=== PATIENT | female | born 1980 | race African-American/Black ===

== ENCOUNTER 2022-09-24 23:12 | Inpatient (IN) | payer OTHER ==
[2022-09-24 23:38] LABS: HEMATOCRIT 25.2 % (32.4-45.2); HEMOGLOBIN 8.4 GM/dL (10.7-15.3); MCH 31.9 pg (25.7-33.7); MCHC 33.2 g/dl (32.0-36.0); MEAN CELL VOLUME 96.1 fl (80-96); PLATELET COUNT 59 10^3/uL (134-434); RBC 2.62 M/mm3 (3.60-5.2); RDW 21.2 % (11.6-15.6)
[2022-09-24 23:42] LABS: ADD RBC MORPHOLOGY YES
[2022-09-24] MEDS ORDERED: MIDAZOLAM IN 0.9 % SOD.CHLORID 1 MG/1 ML PLAST..BAG ONE (23:53)
[2022-09-24 23:54] LABS: INR 1.51 (0.83-1.09); PROTHROMBIN TIME (PATIENT) 17.4 SEC (9.7-13.0)
[2022-09-24 23:57] LABS: ACTIVATED PTT 28.9 SECONDS (25.2-36.5)
[2022-09-25 00:01] LABS: BLOOD UREA NITROGEN 7.2 mg/dL (7-18); CALCIUM 8.7 mg/dL (8.5-10.1)
[2022-09-25 00:04] LABS: CREATININE 1.5 mg/dL (0.55-1.3)
[2022-09-25] MEDS ORDERED: MINERAL OIL/PETROLATUM,WHITE 3.5 GM TUBE OU PRN (00:04)
[2022-09-25 00:06] LABS: BILIRUBIN,TOTAL 2.4 mg/dL (0.2-1); TOT PROT 8.1 g/dl (6.4-8.2)
[2022-09-25] MEDS ORDERED: DEXTROSE 50%-WATER - 25 GM/50 ML VIAL IVPUSH ONE (00:06)
[2022-09-25] MEDS ORDERED: DEXTROSE 50%-WATER 25 GM/50 ML DISP.SYRIN ONE (00:06)
[2022-09-25] MEDS ORDERED: CALCIUM GLUCONATE 10% - 1,000 MG/10 ML VIAL ONE (00:33)
[2022-09-25] MEDS ORDERED: CALCIUM GLUCONATE 10% - 1,000 MG/10 ML VIAL IVPUSH ONE ×3 (00:33→10:18)
[2022-09-25] MEDS ORDERED: EPINEPHrine 1:10,000 (P-F SYR) 1 MG/10 ML DISP.SYRIN ONE (00:40)
[2022-09-25 00:42] LABS: WHITE BLOOD COUNT 3.5 K/mm3 (4.0-10.0)
[2022-09-25 00:44] LABS: ANISOCYTOSIS 2+; MACROCYTOSIS 1+; PLATELET ESTIMATE DECREASED; TARGET CELLS 2+; TEAR DROP CELLS 2+
[2022-09-25] MEDS ORDERED: PHYTONADIONE 10 MG/1 ML AMP IVPB ONE (01:48)
[2022-09-25 01:49] LABS: ARTERIAL BLD GAS O2 SATURATION 99.5 % (95-98); ARTERIAL BLOOD GAS BASE EXCESS -19.1 mmol/L (-2-2); ARTERIAL BLOOD GAS PO2 330.7 mmHg (80-100)
[2022-09-25] MEDS ORDERED: FENTANYL NS IVPB 500 MCG/100 ML BAG IVPB ONE ×5 (01:55→23:36)
[2022-09-25 01:58] LABS: ALLENS TEST POSITIVE; VENT MODE A/C; VENT RATE 16
[2022-09-25 03:27] LABS: HEMATOCRIT 20.6 % (32.4-45.2); MCH 30.4 pg (25.7-33.7); MCHC 32.4 g/dl (32.0-36.0); MEAN CELL VOLUME 93.7 fl (80-96); MEAN PLT VOLUME 6.6 fl (7.5-11.1); PLATELET COUNT 62 10^3/uL (134-434); RDW 17.3 % (11.6-15.6); WHITE BLOOD COUNT 2.5 K/mm3 (4.0-10.0)
[2022-09-25 03:46] LABS: HEMOGLOBIN 6.7 GM/dL (10.7-15.3)
[2022-09-25 03:49] LABS: ARTERIAL BLD GAS O2 SATURATION 98.3 % (95-98); ARTERIAL BLOOD GAS BASE EXCESS -23.5 mmol/L (-2-2); ARTERIAL BLOOD GAS PO2 197.8 mmHg (80-100)
[2022-09-25] MEDS: FENTANYL IVPB 500 MCG/100 ML BAG IVPB SCH ×4 (03:50→18:16)
[2022-09-25 04:04] LABS: ARTERIAL BLOOD GAS pH 6.871 (7.350-7.450)
[2022-09-25] MEDS ORDERED: SODIUM BICARBONATE 8.4% 50 MEQ/50 ML DISP.SYRIN IVPUSH ONE ×2 (04:05)
[2022-09-25] MEDS: DEXTROSE 5%-WATER - 1,000 ML with SODIUM BICARBONATE 8.4% - 150 MEQ IV SCH (04:21)
[2022-09-25] MEDS: ROCURONIUM BROMIDE 500 MG/300 ML BAG IVPB SCH (04:22)
[2022-09-25] MEDS: MIDAZOLAM IN 0.9 % SOD.CHLORID 100 MG/100 ML PLAST..BAG IVPB SCH ×2 (04:22→10:57)
[2022-09-25 06:29] LABS: ARTERIAL BLD GAS O2 SATURATION 97.9 % (95-98); ARTERIAL BLOOD GAS BASE EXCESS -17.3 mmol/L (-2-2); ARTERIAL BLOOD GAS PO2 141.3 mmHg (80-100)
[2022-09-25 06:32] LABS: INR 1.72 (0.83-1.09); PROTHROMBIN TIME (PATIENT) 19.9 SEC (9.7-13.0)
[2022-09-25 06:35] LABS: ARTERIAL BLOOD GAS pH 7.104 (7.350-7.450)
[2022-09-25 06:36] LABS: BASO % 0.5 % (0-2.0); EOS % 0.4 % (0-4.5); HEMATOCRIT 29.6 % (32.4-45.2); HEMOGLOBIN 9.7 GM/dL (10.7-15.3); LYMPH % 14.9 % (8-40); MCHC 32.6 g/dl (32.0-36.0); MEAN CELL VOLUME 92.1 fl (80-96); MEAN PLT VOLUME 7.2 fl (7.5-11.1); MONO % 2.7 % (3.8-10.2); NEUT % 81.5 % (42.8-82.8); PLATELET COUNT 94 10^3/uL (134-434); RBC 3.22 M/mm3 (3.60-5.2); RDW 15.5 % (11.6-15.6); WHITE BLOOD COUNT 3.5 K/mm3 (4.0-10.0)
[2022-09-25 06:58] LABS: LACTIC ACID 18.5 mmol/L (0.4-2.0)
[2022-09-25 07:09] LABS: CHLORIDE 108 mmol/L (98-107); SODIUM 149 mmol/L (136-145)
[2022-09-25 07:12] LABS: ALBUMIN 1.8 g/dl (3.4-5.0); ANION GAP 26 MMOL/L (8-16); BLOOD UREA NITROGEN 6.7 mg/dL (7-18); CO2 15 mmol/L (21-32); GLUCOSE,RANDOM 175 mg/dL (74-106); MAGNESIUM 1.3 mg/dL (1.8-2.4)
[2022-09-25] MEDS ORDERED: CALCIUM CHLORIDE 10% 1 GM/10 ML *VIAL IVPUSH ONE (07:13)
[2022-09-25 07:15] LABS: CREATININE 0.9 mg/dL (0.55-1.3); PHOSPHOROUS 4.3 mg/dL (2.5-4.9); SGOT/AST 246 U/L (15-37); SGPT/ALT 55 U/L (13-61)
[2022-09-25 07:17] LABS: BILIRUBIN,TOTAL 1.2 mg/dL (0.2-1)
[2022-09-25 07:21] LABS: ALK PHOS 59 U/L (45-117); CALCIUM 6.4 mg/dL (8.5-10.1); TOT PROT 3.8 g/dl (6.4-8.2)
[2022-09-25] MEDS ORDERED: NOREPINEPHRINE BITARTRATE 4 MG/4 ML ML IV ONE (08:02)
[2022-09-25] MEDS ORDERED: NOREPINEPHRINE BITARTRATE/D5W 8 MG/250 ML BAG IVPB SCH (08:15)
[2022-09-25 08:50] LABS: BASO % 0.3 % (0-2.0); EOS % 0.3 % (0-4.5); HEMATOCRIT 27.4 % (32.4-45.2); HEMOGLOBIN 8.8 GM/dL (10.7-15.3); LYMPH % 19.2 % (8-40); MCH 30.6 pg (25.7-33.7); MCHC 32.1 g/dl (32.0-36.0); MEAN CELL VOLUME 95.1 fl (80-96); MEAN PLT VOLUME 7.1 fl (7.5-11.1); MONO % 3.7 % (3.8-10.2); NEUT % 76.5 % (42.8-82.8); PLATELET COUNT 47 10^3/uL (134-434); RBC 2.88 M/mm3 (3.60-5.2); WHITE BLOOD COUNT 2.8 K/mm3 (4.0-10.0)
[2022-09-25 08:57] LABS: ACTIVATED PTT 49.1 SECONDS (25.2-36.5); INR 1.4 (0.83-1.09); PROTHROMBIN TIME (PATIENT) 16.2 SEC (9.7-13.0)
[2022-09-25 09:11] LABS: CHLORIDE 107 mmol/L (98-107); SODIUM 150 mmol/L (136-145)
[2022-09-25 09:13] LABS: ALBUMIN 1.8 g/dl (3.4-5.0); ANION GAP 28 MMOL/L (8-16); BLOOD UREA NITROGEN 7.1 mg/dL (7-18); CO2 15 mmol/L (21-32); GLUCOSE,RANDOM 240 mg/dL (74-106); MAGNESIUM 1.5 mg/dL (1.8-2.4)
[2022-09-25] MEDS ORDERED: methylPREDNISolone NA SUCC 125 MG/2 ML VIAL IVPUSH ONE (09:15)
[2022-09-25 09:16] LABS: CREATININE 0.9 mg/dL (0.55-1.3); PHOSPHOROUS 5.5 mg/dL (2.5-4.9); SGOT/AST 167 U/L (15-37); SGPT/ALT 43 U/L (13-61)
[2022-09-25 09:17] LABS: BILIRUBIN,TOTAL 0.7 mg/dL (0.2-1); TOT PROT 3.5 g/dl (6.4-8.2)
[2022-09-25 09:19] LABS: ALK PHOS 41 U/L (45-117)
[2022-09-25 09:29] LABS: CALCIUM 6.9 mg/dL (8.5-10.1)
[2022-09-25] MEDS: NOREPINEPHRINE 0.9 % NACL 8 MG/250 ML BAG IVPB SCH (09:30)
[2022-09-25] MEDS ORDERED: CALCIUM GLUCONATE 10% - 1,000 MG/10 ML VIAL IVPUSH SCH (09:30)
[2022-09-25] MEDS: VASOPRESSIN 40 UNITS/100 ML BAG IV SCH ×2 (09:31→20:55)
[2022-09-25 09:52] LABS: LACTIC ACID 20.3 mmol/L (0.4-2.0)
[2022-09-25] MEDS ORDERED: MIDAZOLAM HCL 2 MG/2 ML SINGLE DOSE VIAL IVPUSH ONE (09:56)
[2022-09-25] MEDS ORDERED: levETIRAcetam 500 MG/5 ML INJECTION VIAL IVPB ONE ×4 (09:56→12:25)
[2022-09-25] MEDS ORDERED: levETIRAcetam 500 MG/5 ML INJECTION VIAL IVPB SCH (10:00)
[2022-09-25] MEDS ORDERED: VANCOMYCIN 1 GM/200 ML PREMIX BAG IVPB ONE (10:00)
[2022-09-25] MEDS ORDERED: LORazepam 2 MG/ML SDV VIAL IVPUSH ONE (10:55)
[2022-09-25] MEDS ORDERED: LACTATED RINGERS SOLUTION 1,000 ML/1,000 ML INFUS.BAG IV SCH (11:15)
[2022-09-25] MEDS: PIPERACILLIN/TAZOB 3.375 GM 3.375 GM in DEXTROSE 5%-WATER - 50 ML IVPB SCH ×2 (12:12→20:19)
[2022-09-25] MEDS: DEXMEDETOMIDINE PREMIX 400 MCG/100 ML BAG IVPB SCH (12:20)
[2022-09-25] MEDS: MUPIROCIN 2% TOPICAL OINTMENT FOR DECOLONIZATION NS SCH ×2 (12:31→22:08)
[2022-09-25 13:06] LABS: HEMATOCRIT 31.7 % (32.4-45.2); HEMOGLOBIN 10.6 GM/dL (10.7-15.3); MCH 30.8 pg (25.7-33.7); MCHC 33.3 g/dl (32.0-36.0); MEAN CELL VOLUME 92.5 fl (80-96); MEAN PLT VOLUME 7.3 fl (7.5-11.1); PLATELET COUNT 39 10^3/uL (134-434); RBC 3.43 M/mm3 (3.60-5.2); RDW 14.5 % (11.6-15.6); WHITE BLOOD COUNT 3.1 K/mm3 (4.0-10.0)
[2022-09-25 13:16] LABS: BLOOD UREA NITROGEN 6.9 mg/dL (7-18)
[2022-09-25 13:20] LABS: BILIRUBIN,TOTAL 1.2 mg/dL (0.2-1)
[2022-09-25] MEDS ORDERED: MAGNESIUM SULFATE IN WATER 2 GM/50 ML IVPB IVPB ONE (15:00)
[2022-09-25 16:20] LABS: HEMATOCRIT 29.7 % (32.4-45.2); HEMOGLOBIN 9.9 GM/dL (10.7-15.3); INR 1.32 (0.83-1.09); MCH 30.1 pg (25.7-33.7); MCHC 33.3 g/dl (32.0-36.0); MEAN CELL VOLUME 90.3 fl (80-96); MEAN PLT VOLUME 6.9 fl (7.5-11.1); PLATELET COUNT 256 10^3/uL (134-434); PROTHROMBIN TIME (PATIENT) 15.2 SEC (9.7-13.0); RBC 3.29 M/mm3 (3.60-5.2); RDW 14.6 % (11.6-15.6); WHITE BLOOD COUNT 3.7 K/mm3 (4.0-10.0)
[2022-09-25 16:32] LABS: BLOOD UREA NITROGEN 6.8 mg/dL (7-18); CALCIUM 7.3 mg/dL (8.5-10.1)
[2022-09-25 16:35] LABS: CREATININE 1.2 mg/dL (0.55-1.3)
[2022-09-25 16:37] LABS: TOT PROT 4.9 g/dl (6.4-8.2)
[2022-09-25 16:39] LABS: ALBUMIN 2.4 g/dl (3.4-5.0)
[2022-09-25 17:01] LABS: LACTIC ACID 20.9 mmol/L (0.4-2.0)
[2022-09-25 17:34] LABS: MAGNESIUM 1.3 mg/dL (1.8-2.4)
[2022-09-25 17:38] LABS: PHOSPHOROUS 4.3 mg/dL (2.5-4.9)
[2022-09-25] MEDS: POTASSIUM CHLORIDE 20 MEQ PREMIX IVPB 100 ML IVPB SCH ×3 (18:11→22:09)
[2022-09-25 20:00] LABS: HEMATOCRIT 29.9 % (32.4-45.2); HEMOGLOBIN 10.1 GM/dL (10.7-15.3); MCH 30.3 pg (25.7-33.7); MCHC 33.9 g/dl (32.0-36.0); MEAN CELL VOLUME 89.3 fl (80-96); MEAN PLT VOLUME 6.7 fl (7.5-11.1); PLATELET COUNT 216 10^3/uL (134-434); RBC 3.35 M/mm3 (3.60-5.2); RDW 14.8 % (11.6-15.6); WHITE BLOOD COUNT 3.3 K/mm3 (4.0-10.0)
[2022-09-25 20:10] LABS: CHLORIDE 106 mmol/L (98-107); SODIUM 148 mmol/L (136-145)
[2022-09-25 20:12] LABS: CALCIUM 7.1 mg/dL (8.5-10.1)
[2022-09-25 20:13] LABS: ALBUMIN 2.4 g/dl (3.4-5.0); BLOOD UREA NITROGEN 7.7 mg/dL (7-18); CO2 16 mmol/L (21-32); GLUCOSE,RANDOM 194 mg/dL (74-106)
[2022-09-25 20:15] LABS: INR 1.32 (0.83-1.09); PROTHROMBIN TIME (PATIENT) 15.2 SEC (9.7-13.0); SGPT/ALT 202 U/L (13-61)
[2022-09-25 20:16] LABS: BILIRUBIN,TOTAL 2.6 mg/dL (0.2-1); CREATININE 1.3 mg/dL (0.55-1.3); TOT PROT 5.1 g/dl (6.4-8.2)
[2022-09-25 20:18] LABS: ACTIVATED PTT 36.7 SECONDS (25.2-36.5); ALK PHOS 68 U/L (45-117)
[2022-09-25] MEDS ORDERED: CALCIUM GLUCONATE 10% - 1,000 MG/10 ML VIAL IVPB ONE ×2 (20:37→22:08)
[2022-09-25 20:47] LABS: ANION GAP 27 MMOL/L (8-16); SGOT/AST 1067 U/L (15-37)
[2022-09-25 21:21] LABS: CHLORIDE 104 mmol/L (98-107); SODIUM 147 mmol/L (136-145)
[2022-09-25 21:23] LABS: ANION GAP 26 MMOL/L (8-16); BLOOD UREA NITROGEN 7.4 mg/dL (7-18); CO2 17 mmol/L (21-32); GLUCOSE,RANDOM 176 mg/dL (74-106)
[2022-09-25 21:24] LABS: LACTIC ACID 21.4 mmol/L (0.4-2.0)
[2022-09-25 21:24] LABS: ALBUMIN 2.3 g/dl (3.4-5.0)
[2022-09-25 21:26] LABS: CREATININE 1.3 mg/dL (0.55-1.3); SGPT/ALT 216 U/L (13-61)
[2022-09-25 21:28] LABS: ALK PHOS 63 U/L (45-117); BILIRUBIN,TOTAL 2.7 mg/dL (0.2-1); TOT PROT 4.9 g/dl (6.4-8.2)
[2022-09-25 21:36] LABS: CALCIUM 6.8 mg/dL (8.5-10.1); SGOT/AST 1215 U/L (15-37)
[2022-09-25] MEDS: levETIRAcetam 500 MG/5 ML INJECTION VIAL IVPB SCH (22:08)
[2022-09-25] MEDS: CHLORHEXIDINE GLUCONATE 4% CLEANSER FOR DECOLONIZATION TP SCH (22:08)
[2022-09-25 22:32] LABS: HEMATOCRIT 29.5 % (32.4-45.2); MCH 30.2 pg (25.7-33.7); MEAN CELL VOLUME 88.8 fl (80-96); MEAN PLT VOLUME 6.5 fl (7.5-11.1); PLATELET COUNT 159 10^3/uL (134-434); RBC 3.33 M/mm3 (3.60-5.2); RDW 15.1 % (11.6-15.6); WHITE BLOOD COUNT 2.6 K/mm3 (4.0-10.0)
[2022-09-25 22:58] LABS: MAGNESIUM 1.9 mg/dL (1.8-2.4)
[2022-09-25 23:02] LABS: PHOSPHOROUS 4.9 mg/dL (2.5-4.9)
[2022-09-26 00:23] LABS: ARTERIAL BLD GAS O2 SATURATION 96.4 % (95-98); ARTERIAL BLOOD GAS BASE EXCESS -18.7 mmol/L (-2-2); ARTERIAL BLOOD GAS PO2 108.9 mmHg (80-100)
[2022-09-26 00:28] LABS: MAGNESIUM 1.8 mg/dL (1.8-2.4)
[2022-09-26 00:28] LABS: ARTERIAL BLOOD GAS pH 7.124 (7.350-7.450)
[2022-09-26 00:32] LABS: PHOSPHOROUS 5.6 mg/dL (2.5-4.9)
[2022-09-26] MEDS ORDERED: MAGNESIUM SULF 50% (8.12 MEQ/2 ML-1 GM VIAL) IVPB ONE (00:35)
[2022-09-26] MEDS: SODIUM BICARBONATE 8.4% 50 MEQ/50 ML DISP.SYRIN IVPUSH SCH ×3 (00:55→04:36)
[2022-09-26 01:03] LABS: CALCIUM 7.4 mg/dL (8.5-10.1)
[2022-09-26] MEDS: MIDAZOLAM IN 0.9 % SOD.CHLORID 100 MG/100 ML PLAST..BAG IVPB SCH (01:03)
[2022-09-26 01:04] LABS: BLOOD UREA NITROGEN 7.4 mg/dL (7-18)
[2022-09-26] MEDS: PIPERACILLIN/TAZOB 3.375 GM 3.375 GM in DEXTROSE 5%-WATER - 50 ML IVPB SCH (01:04)
[2022-09-26] MEDS: ROCURONIUM BROMIDE 500 MG/300 ML BAG IVPB SCH (01:04)
[2022-09-26 01:07] LABS: CREATININE 1.4 mg/dL (0.55-1.3)
[2022-09-26 01:10] LABS: BILIRUBIN,TOTAL 3.3 mg/dL (0.2-1); TOT PROT 4.8 g/dl (6.4-8.2)
[2022-09-26 01:23] LABS: ALBUMIN 2.3 g/dl (3.4-5.0)
[2022-09-26] MEDS ORDERED: CALCIUM GLUCONATE 10% - 1,000 MG/10 ML VIAL IVPB ONE (04:26)
[2022-09-26] MEDS ORDERED: FENTANYL NS IVPB 500 MCG/100 ML BAG IVPB ONE ×3 (06:41→21:42)
[2022-09-26 06:55] LABS: INR 1.79 (0.83-1.09); PROTHROMBIN TIME (PATIENT) 20.7 SEC (9.7-13.0)
[2022-09-26 06:58] LABS: ACTIVATED PTT 34.4 SECONDS (25.2-36.5)
[2022-09-26 07:07] LABS: CHLORIDE 104 mmol/L (98-107); SODIUM 153 mmol/L (136-145)
[2022-09-26 07:09] LABS: CALCIUM 7.2 mg/dL (8.5-10.1)
[2022-09-26 07:10] LABS: ALBUMIN 1.9 g/dl (3.4-5.0); ANION GAP 33 MMOL/L (8-16); BLOOD UREA NITROGEN 9.3 mg/dL (7-18); CO2 16 mmol/L (21-32); HEMATOCRIT 27.6 % (32.4-45.2); HEMOGLOBIN 9.6 GM/dL (10.7-15.3); MAGNESIUM 1.9 mg/dL (1.8-2.4); MCH 30.4 pg (25.7-33.7); MCHC 34.8 g/dl (32.0-36.0); MEAN CELL VOLUME 87.4 fl (80-96); MEAN PLT VOLUME 7.1 fl (7.5-11.1); PLATELET COUNT 71 10^3/uL (134-434); RBC 3.16 M/mm3 (3.60-5.2); RDW 14.9 % (11.6-15.6)
[2022-09-26 07:12] LABS: SGPT/ALT 416 U/L (13-61)
[2022-09-26 07:13] LABS: CREATININE 1.8 mg/dL (0.55-1.3); PHOSPHOROUS 6.1 mg/dL (2.5-4.9)
[2022-09-26 07:14] LABS: TOT PROT 4.1 g/dl (6.4-8.2)
[2022-09-26 07:15] LABS: ALK PHOS 63 U/L (45-117)
[2022-09-26 07:18] LABS: ARTERIAL BLD GAS O2 SATURATION 96.3 % (95-98); ARTERIAL BLOOD GAS PO2 101.3 mmHg (80-100)
[2022-09-26 07:19] LABS: ARTERIAL BLOOD GAS pH 7.186 (7.350-7.450)
[2022-09-26 07:27] LABS: LACTIC ACID 29.2 mmol/L (0.4-2.0)
[2022-09-26 07:32] LABS: GLUCOSE,RANDOM 47 mg/dL (74-106); SGOT/AST 3171 U/L (15-37)
[2022-09-26] MEDS ORDERED: DEXTROSE 50%-WATER - 25 GM/50 ML VIAL IVPUSH ONE ×2 (07:45→12:25)
[2022-09-26] MEDS: FENTANYL IVPB 500 MCG/100 ML BAG IVPB SCH (07:52)
[2022-09-26] MEDS: NOREPINEPHRINE 0.9 % NACL 8 MG/250 ML BAG IVPB SCH ×3 (07:53→13:44)
[2022-09-26] MEDS: DEXMEDETOMIDINE PREMIX 400 MCG/100 ML BAG IVPB SCH ×2 (07:53→12:38)
[2022-09-26] MEDS ORDERED: PHENYLEPHRINE HCL 10 MG/1 ML SINGLE DOSE VIAL IVPB SCH ×3 (08:43→10:00)
[2022-09-26 08:47] LABS: ANISOCYTOSIS 0; MACROCYTOSIS 0
[2022-09-26] MEDS: MUPIROCIN 2% TOPICAL OINTMENT FOR DECOLONIZATION NS SCH ×2 (09:01→22:16)
[2022-09-26] MEDS: levETIRAcetam 500 MG/5 ML INJECTION VIAL IVPB SCH ×2 (09:01→22:17)
[2022-09-26] MEDS: VASOPRESSIN 40 UNITS/100 ML BAG IV SCH ×2 (09:08→12:38)
[2022-09-26] MEDS: SODIUM BICARBONATE 8.4% - 150 MEQ in DEXTROSE 5%-WATER - 1,000 ML IV SCH ×2 (09:18→19:38)
[2022-09-26 09:33] LABS: CORRECTED WBC 3.03 K/mm3; WHITE BLOOD COUNT 6.7 K/mm3 (4.0-10.0)
[2022-09-26] MEDS: PHENYLEPHRINE NS PREMIX 50,000 MCG/500 ML BAG CVP SCH (09:34)
[2022-09-26 10:56] LABS: HEMATOCRIT 27.4 % (32.4-45.2); HEMOGLOBIN 9.3 GM/dL (10.7-15.3); MCH 30.1 pg (25.7-33.7); MCHC 33.8 g/dl (32.0-36.0); MEAN PLT VOLUME 7.4 fl (7.5-11.1); PLATELET COUNT 55 10^3/uL (134-434); RBC 3.08 M/mm3 (3.60-5.2); RDW 15.2 % (11.6-15.6)
[2022-09-26 11:01] LABS: INR 2.06 (0.83-1.09); PROTHROMBIN TIME (PATIENT) 23.9 SEC (9.7-13.0)
[2022-09-26 11:04] LABS: ACTIVATED PTT 37.4 SECONDS (25.2-36.5)
[2022-09-26 11:06] LABS: CHLORIDE 102 mmol/L (98-107); LACTIC ACID 29.4 mmol/L (0.4-2.0); SODIUM 150 mmol/L (136-145)
[2022-09-26 11:09] LABS: ALBUMIN 1.8 g/dl (3.4-5.0); ANION GAP 33 MMOL/L (8-16); BLOOD UREA NITROGEN 8.3 mg/dL (7-18); CO2 15 mmol/L (21-32); GLUCOSE,RANDOM 113 mg/dL (74-106)
[2022-09-26 11:12] LABS: SGPT/ALT 582 U/L (13-61)
[2022-09-26 11:13] LABS: TOT PROT 3.8 g/dl (6.4-8.2)
[2022-09-26 11:15] LABS: ALK PHOS 62 U/L (45-117)
[2022-09-26 11:23] LABS: ANISOCYTOSIS 0; CORRECTED WBC 5.49 K/mm3; HELMET CELLS 0; HOWELL-JOLLY BODIES 0; MACROCYTOSIS 0; OVALOCYTE 0; ROULEAU 0; SICKELED CELLS 0; TARGET CELLS 0; TEAR DROP CELLS 0; TOXIC GRANULATION 0
[2022-09-26 11:43] LABS: CALCIUM 6.9 mg/dL (8.5-10.1); SGOT/AST 4519 U/L (15-37)
[2022-09-26 12:26] LABS: ARTERIAL BLD GAS O2 SATURATION 90.4 % (95-98); ARTERIAL BLOOD GAS BASE EXCESS -18.7 mmol/L (-2-2); ARTERIAL BLOOD GAS PO2 75.8 mmHg (80-100)
[2022-09-26] MEDS ORDERED: DEXTROSE 50%-WATER 25 GM/50 ML DISP.SYRIN ONE (12:28)
[2022-09-26 12:30] LABS: ALLENS TEST POSITIVE
[2022-09-26 12:31] LABS: VENT MODE AC; VENT RATE 30
[2022-09-26 12:33] LABS: ARTERIAL BLOOD GAS pH 7.114 (7.350-7.450)
[2022-09-26] MEDS: DEXTROSE 5%-WATER - 1,000 ML with SODIUM BICARBONATE 8.4% - 150 MEQ IV SCH (12:43)
[2022-09-26] MEDS ORDERED: SODIUM BICARBONATE 8.4% 50 MEQ/50 ML DISP.SYRIN IVPUSH ONE ×4 (14:34→17:21)
[2022-09-26 15:36] LABS: HEMATOCRIT 25.4 % (32.4-45.2); HEMOGLOBIN 8.9 GM/dL (10.7-15.3); MCHC 34.8 g/dl (32.0-36.0); MEAN CELL VOLUME 86.2 fl (80-96); MEAN PLT VOLUME 7.4 fl (7.5-11.1); RBC 2.95 M/mm3 (3.60-5.2); RDW 15.3 % (11.6-15.6)
[2022-09-26 15:41] LABS: ACTIVATED PTT 41.4 SECONDS (25.2-36.5); INR 2.47 (0.83-1.09); PROTHROMBIN TIME (PATIENT) 28.7 SEC (9.7-13.0)
[2022-09-26 15:54] LABS: CHLORIDE 102 mmol/L (98-107); SODIUM 157 mmol/L (136-145)
[2022-09-26 15:56] LABS: ALBUMIN 1.6 g/dl (3.4-5.0); ANION GAP 34 MMOL/L (8-16); BLOOD UREA NITROGEN 10.2 mg/dL (7-18); CO2 20 mmol/L (21-32); GLUCOSE,RANDOM 107 mg/dL (74-106)
[2022-09-26 16:00] LABS: CREATININE 2.1 mg/dL (0.55-1.3); SGPT/ALT 826 U/L (13-61)
[2022-09-26 16:02] LABS: BILIRUBIN,TOTAL 4.5 mg/dL (0.2-1); TOT PROT 3.6 g/dl (6.4-8.2)
[2022-09-26 16:03] LABS: ALK PHOS 71 U/L (45-117)
[2022-09-26 16:06] LABS: PLATELET COUNT 35 10^3/uL (134-434)
[2022-09-26 16:15] LABS: ANISOCYTOSIS 2+; CORRECTED WBC 12.68 K/mm3; MACROCYTOSIS 0; TARGET CELLS 1+; TEAR DROP CELLS 1+
[2022-09-26 16:22] LABS: CALCIUM 6.5 mg/dL (8.5-10.1); SGOT/AST 7202 U/L (15-37)
[2022-09-26] MEDS ORDERED: SODIUM BICARBONATE 8.4% - 100 MEQ in DEXTROSE 5%-WATER - 1,000 ML IV SCH ×2 (16:55→17:00)
[2022-09-26 17:12] LABS: ARTERIAL BLD GAS O2 SATURATION 90.2 % (95-98); ARTERIAL BLOOD GAS BASE EXCESS -15.8 mmol/L (-2-2)
[2022-09-26 17:14] LABS: VENT MODE V/AC; VENT RATE 30
[2022-09-26 17:16] LABS: ARTERIAL BLOOD GAS pH 7.162 (7.350-7.450)
[2022-09-26] MEDS ORDERED: SODIUM BICARBONATE 8.4% 50 MEQ/50 ML VIAL ONE (17:54)
[2022-09-26 19:03] LABS: BASO % 0.1 % (0-2.0); EOS % 11.3 % (0-4.5); HEMATOCRIT 27.8 % (32.4-45.2); HEMOGLOBIN 9.4 GM/dL (10.7-15.3); LYMPH % 12.9 % (8-40); MCH 29.7 pg (25.7-33.7); MCHC 33.8 g/dl (32.0-36.0); MEAN PLT VOLUME 7.3 fl (7.5-11.1); MONO % 7.2 % (3.8-10.2); NEUT % 68.5 % (42.8-82.8); RBC 3.16 M/mm3 (3.60-5.2); RDW 15.5 % (11.6-15.6); WHITE BLOOD COUNT 19.8 K/mm3 (4.0-10.0)
[2022-09-26 19:04] LABS: PLATELET COUNT 29 10^3/uL (134-434)
[2022-09-26 19:11] LABS: INR 2.59 (0.83-1.09); PROTHROMBIN TIME (PATIENT) 30.1 SEC (9.7-13.0)
[2022-09-26 19:14] LABS: ACTIVATED PTT 45.2 SECONDS (25.2-36.5)
[2022-09-26 19:50] LABS: INR 2.77 (0.83-1.09); PROTHROMBIN TIME (PATIENT) 32.2 SEC (9.7-13.0)
[2022-09-26 19:52] LABS: ACTIVATED PTT 42.1 SECONDS (25.2-36.5)
[2022-09-26 19:54] LABS: ARTERIAL BLD GAS O2 SATURATION 94.9 % (95-98); ARTERIAL BLOOD GAS BASE EXCESS -13.7 mmol/L (-2-2); ARTERIAL BLOOD GAS PO2 87.5 mmHg (80-100); ARTERIAL BLOOD GAS pH 7.212 (7.350-7.450)
[2022-09-26 20:37] LABS: LACTIC ACID 34.1 mmol/L (0.4-2.0)
[2022-09-26 20:46] LABS: ANISOCYTOSIS 2+; CORRECTED WBC 16.78 K/mm3; MACROCYTOSIS 0; OVALOCYTE 1+; TEAR DROP CELLS 1+; TOXIC GRANULATION 1+
[2022-09-26] MEDS: CHLORHEXIDINE GLUCONATE 4% CLEANSER FOR DECOLONIZATION TP SCH (22:17)
[2022-09-26 22:32] LABS: ARTERIAL BLD GAS O2 SATURATION 94.7 % (95-98); ARTERIAL BLOOD GAS BASE EXCESS -16.9 mmol/L (-2-2); ARTERIAL BLOOD GAS PO2 93.2 mmHg (80-100); HEMATOCRIT 25.1 % (32.4-45.2); HEMOGLOBIN 8.6 GM/dL (10.7-15.3); MCH 30.9 pg (25.7-33.7); MCHC 34.3 g/dl (32.0-36.0); MEAN CELL VOLUME 90.1 fl (80-96); MEAN PLT VOLUME 8.4 fl (7.5-11.1); PLATELET COUNT 80 10^3/uL (134-434); RBC 2.78 M/mm3 (3.60-5.2); RDW 15.9 % (11.6-15.6)
[2022-09-26 22:36] LABS: ARTERIAL BLOOD GAS pH 7.134 (7.350-7.450)
[2022-09-26 23:34] LABS: LACTIC ACID 33.8 mmol/L (0.4-2.0)
[2022-09-27] MEDS ORDERED: SODIUM BICARBONATE 8.4% 50 MEQ/50 ML VIAL ONE (00:48)
[2022-09-27] MEDS: ROCURONIUM BROMIDE 500 MG/300 ML BAG IVPB SCH (01:04)
[2022-09-27] MEDS: SODIUM BICARBONATE 8.4% - 150 MEQ in DEXTROSE 5%-WATER - 1,000 ML IV SCH ×3 (01:05→21:45)
[2022-09-27] MEDS: MIDAZOLAM IN 0.9 % SOD.CHLORID 100 MG/100 ML PLAST..BAG IVPB SCH ×2 (01:37→07:00)
[2022-09-27 02:17] LABS: ARTERIAL BLD GAS O2 SATURATION 91.7 % (95-98); ARTERIAL BLOOD GAS PO2 80.2 mmHg (80-100)
[2022-09-27 02:19] LABS: HEMOGLOBIN 8.4 GM/dL (10.7-15.3); MCHC 33.7 g/dl (32.0-36.0); MEAN CELL VOLUME 88.7 fl (80-96); MEAN PLT VOLUME 8.8 fl (7.5-11.1); RBC 2.81 M/mm3 (3.60-5.2)
[2022-09-27 02:32] LABS: ARTERIAL BLOOD GAS pH 7.113 (7.350-7.450)
[2022-09-27 02:37] LABS: WHITE BLOOD COUNT 24.1 K/mm3 (4.0-10.0)
[2022-09-27 02:38] LABS: PLATELET COUNT 24 10^3/uL (134-434)
[2022-09-27 02:39] LABS: INR 2.63 (0.83-1.09); PROTHROMBIN TIME (PATIENT) 30.6 SEC (9.7-13.0)
[2022-09-27] MEDS ORDERED: CALCIUM GLUC IN NACL, ISO-OSM 1 GM/50 ML BAG IVPB ONE ×2 (02:45→20:40)
[2022-09-27] MEDS: SODIUM BICARBONATE 8.4% 50 MEQ/50 ML DISP.SYRIN IVPUSH SCH ×6 (03:04→14:30)
[2022-09-27 03:05] LABS: LACTIC ACID 38.3 mmol/L (0.4-2.0)
[2022-09-27] MEDS: FENTANYL IVPB 500 MCG/100 ML BAG IVPB SCH (03:28)
[2022-09-27] MEDS ORDERED: fentaNYL CITRATE 250 MCG/5 ML VIAL ONE (06:13)
[2022-09-27 06:29] LABS: ARTERIAL BLD GAS O2 SATURATION 95.5 % (95-98); ARTERIAL BLOOD GAS BASE EXCESS -16.4 mmol/L (-2-2); ARTERIAL BLOOD GAS PO2 96.7 mmHg (80-100); HEMATOCRIT 23.9 % (32.4-45.2); HEMOGLOBIN 8.1 GM/dL (10.7-15.3); MEAN CELL VOLUME 88.3 fl (80-96); MEAN PLT VOLUME 8.2 fl (7.5-11.1); RDW 15.9 % (11.6-15.6)
[2022-09-27 06:32] LABS: ARTERIAL BLOOD GAS pH 7.154 (7.350-7.450); PLATELET COUNT 15 10^3/uL (134-434); WHITE BLOOD COUNT 24.1 K/mm3 (4.0-10.0)
[2022-09-27 06:37] LABS: INR 2.94 (0.83-1.09); PROTHROMBIN TIME (PATIENT) 34.2 SEC (9.7-13.0)
[2022-09-27 06:40] LABS: ACTIVATED PTT 45.1 SECONDS (25.2-36.5)
[2022-09-27 06:49] LABS: CHLORIDE 99 mmol/L (98-107); SODIUM 157 mmol/L (136-145)
[2022-09-27] MEDS: DEXMEDETOMIDINE PREMIX 400 MCG/100 ML BAG IVPB SCH ×2 (07:00→09:58)
[2022-09-27 07:10] LABS: LACTIC ACID 39.7 mmol/L (0.4-2.0)
[2022-09-27 07:58] LABS: ALBUMIN 1.6 g/dl (3.4-5.0); ALK PHOS 103 U/L (45-117); ANION GAP 42 MMOL/L (8-16); BILIRUBIN,DIRECT 3.2 mg/dL (0.0-0.2); BILIRUBIN,TOTAL 4.9 mg/dL (0.2-1); BLOOD UREA NITROGEN 12.4 mg/dL (7-18); CALCIUM 6.3 mg/dL (8.5-10.1); CO2 16 mmol/L (21-32); CREATININE 2.7 mg/dL (0.55-1.3); GLUCOSE,RANDOM 46 mg/dL (74-106); MAGNESIUM 1.6 mg/dL (1.8-2.4); PHOSPHOROUS 7.8 mg/dL (2.5-4.9); SGOT/AST 9806 U/L (15-37); SGPT/ALT 1387 U/L (13-61); TOT PROT 3.8 g/dl (6.4-8.2)
[2022-09-27] MEDS ORDERED: DEXTROSE 50%-WATER - 25 GM/50 ML VIAL IVPUSH ONE ×2 (08:00)
[2022-09-27] MEDS: NOREPINEPHRINE 0.9 % NACL 8 MG/250 ML BAG IVPB SCH ×2 (09:09→09:58)
[2022-09-27] MEDS: VASOPRESSIN 40 UNITS/100 ML BAG IV SCH ×2 (09:10→10:09)
[2022-09-27] MEDS: MUPIROCIN 2% TOPICAL OINTMENT FOR DECOLONIZATION NS SCH ×2 (09:11→21:46)
[2022-09-27] MEDS: levETIRAcetam 500 MG/5 ML INJECTION VIAL IVPB SCH ×2 (09:11→22:32)
[2022-09-27] MEDS: PHENYLEPHRINE NS PREMIX 50,000 MCG/500 ML BAG CVP SCH (09:58)
[2022-09-27] MEDS ORDERED: FENTANYL NS IVPB 500 MCG/100 ML BAG IVPB ONE ×2 (13:19→21:17)
[2022-09-27 15:09] LABS: HEMATOCRIT 21.6 % (32.4-45.2); HEMOGLOBIN 7.1 GM/dL (10.7-15.3); MEAN PLT VOLUME 7.8 fl (7.5-11.1); RBC 2.37 M/mm3 (3.60-5.2); RDW 16.7 % (11.6-15.6)
[2022-09-27 15:12] LABS: WHITE BLOOD COUNT 15.7 K/mm3 (4.0-10.0)
[2022-09-27 15:19] LABS: INR 3.78 (0.83-1.09); PROTHROMBIN TIME (PATIENT) 44.1 SEC (9.7-13.0)
[2022-09-27 15:21] LABS: ACTIVATED PTT 47.4 SECONDS (25.2-36.5)
[2022-09-27 15:52] LABS: ANISOCYTOSIS 0; CORRECTED WBC 7.89 K/mm3; HELMET CELLS 0; HOWELL-JOLLY BODIES 0; MACROCYTOSIS 0; OVALOCYTE 0; ROULEAU 0; SICKELED CELLS 0; TARGET CELLS 0; TEAR DROP CELLS 0; TOXIC GRANULATION 0
[2022-09-27 15:58] LABS: PLATELET COUNT 12 10^3/uL (134-434)
[2022-09-27 16:47] LABS: ALBUMIN 1.4 g/dl (3.4-5.0); ALK PHOS 166 U/L (45-117); ANION GAP 48 MMOL/L (8-16); BILIRUBIN,TOTAL 4.3 mg/dL (0.2-1); CHLORIDE 97 mmol/L (98-107); CO2 11 mmol/L (21-32); CREATININE 2.9 mg/dL (0.55-1.3); GLUCOSE,RANDOM 147 mg/dL (74-106); SGOT/AST 9469 U/L (15-37); SGPT/ALT 874 U/L (13-61); SODIUM 156 mmol/L (136-145); TOT PROT 3.3 g/dl (6.4-8.2)
[2022-09-27] MEDS ORDERED: CALCIUM GLUCONATE IN NACL 1 GM/50 ML BAG IVPB ONE (16:58)
[2022-09-27 17:09] LABS: LACTIC ACID 44.6 mmol/L (0.4-2.0)
[2022-09-27] MEDS: PIPERACILLIN/TAZOB 2.25 GM 2.25 GM in DEXTROSE 5%-WATER - 50 ML IVPB SCH (18:18)
[2022-09-27 19:40] LABS: BASO % 0.2 % (0-2.0); EOS % 6.9 % (0-4.5); HEMATOCRIT 18.8 % (32.4-45.2); LYMPH % 5.7 % (8-40); MCH 29.6 pg (25.7-33.7); MCHC 32.4 g/dl (32.0-36.0); MEAN CELL VOLUME 91.3 fl (80-96); MEAN PLT VOLUME 7.3 fl (7.5-11.1); MONO % 1.2 % (3.8-10.2); RBC 2.06 M/mm3 (3.60-5.2); RDW 16.6 % (11.6-15.6); WHITE BLOOD COUNT 11.8 K/mm3 (4.0-10.0)
[2022-09-27 19:56] LABS: HEMOGLOBIN 6.1 GM/dL (10.7-15.3)
[2022-09-27 19:57] LABS: INR 3.22 (0.83-1.09); PLATELET COUNT 19 10^3/uL (134-434); PROTHROMBIN TIME (PATIENT) 37.5 SEC (9.7-13.0)
[2022-09-27 19:58] LABS: CHLORIDE 96 mmol/L (98-107); SODIUM 156 mmol/L (136-145)
[2022-09-27 20:00] LABS: ACTIVATED PTT 47.1 SECONDS (25.2-36.5); ALBUMIN 1.4 g/dl (3.4-5.0); ANION GAP 50 MMOL/L (8-16); BLOOD UREA NITROGEN 12.6 mg/dL (7-18); CO2 10 mmol/L (21-32); GLUCOSE,RANDOM 165 mg/dL (74-106); MAGNESIUM 1.7 mg/dL (1.8-2.4)
[2022-09-27 20:03] LABS: CREATININE 2.9 mg/dL (0.55-1.3); SGPT/ALT 952 U/L (13-61)
[2022-09-27 20:05] LABS: TOT PROT 3.2 g/dl (6.4-8.2)
[2022-09-27 20:07] LABS: ALK PHOS 160 U/L (45-117)
[2022-09-27 20:23] LABS: LACTIC ACID 49.4 mmol/L (0.4-2.0)
[2022-09-27 20:24] LABS: ANISOCYTOSIS 2+; CORRECTED WBC 9.52 K/mm3; MACROCYTOSIS 0; OVALOCYTE 1+; TARGET CELLS 1+; TOXIC GRANULATION 1+
[2022-09-27 20:33] LABS: CALCIUM 5.9 mg/dL (8.5-10.1); PHOSPHOROUS 8.8 mg/dL (2.5-4.9); SGOT/AST 8473 U/L (15-37)
[2022-09-27 20:37] LABS: BASO % 0.3 % (0-2.0); EOS % 5.1 % (0-4.5); HEMATOCRIT 18.3 % (32.4-45.2); LYMPH % 6.6 % (8-40); MCH 29.9 pg (25.7-33.7); MCHC 32.7 g/dl (32.0-36.0); MEAN CELL VOLUME 91.5 fl (80-96); MEAN PLT VOLUME 7.3 fl (7.5-11.1); MONO % 1.4 % (3.8-10.2); NEUT % 86.6 % (42.8-82.8); RDW 17.1 % (11.6-15.6); WHITE BLOOD COUNT 12.2 K/mm3 (4.0-10.0)
[2022-09-27 20:39] LABS: PLATELET COUNT 12 10^3/uL (134-434)
[2022-09-27] MEDS ORDERED: CALCIUM GLUCONATE 10% - 1,000 MG/10 ML VIAL IVPB ONE ×3 (20:41→22:45)
[2022-09-27 20:44] LABS: INR 3.4 (0.83-1.09); PROTHROMBIN TIME (PATIENT) 39.6 SEC (9.7-13.0)
[2022-09-27] MEDS ORDERED: SODIUM BICARBONATE 8.4% 50 MEQ/50 ML DISP.SYRIN IVPUSH ONE ×4 (20:45→22:55)
[2022-09-27] MEDS ORDERED: SODIUM BICARBONATE 8.4% 10 MEQ/10 ML VIAL IVPUSH ONE ×2 (20:45→20:55)
[2022-09-27 20:47] LABS: ACTIVATED PTT 45.4 SECONDS (25.2-36.5)
[2022-09-27 20:57] LABS: CHLORIDE 95 mmol/L (98-107); SODIUM 155 mmol/L (136-145)
[2022-09-27 20:59] LABS: ANION GAP 50 MMOL/L (8-16); BLOOD UREA NITROGEN 11.6 mg/dL (7-18); CO2 10 mmol/L (21-32); GLUCOSE,RANDOM 162 mg/dL (74-106)
[2022-09-27] MEDS ORDERED: FUROSEMIDE 40 MG/4 ML INJECTABLE VIAL IVPUSH ONE ×2 (20:59→22:51)
[2022-09-27 21:00] LABS: ALBUMIN 1.3 g/dl (3.4-5.0)
[2022-09-27 21:03] LABS: CREATININE 2.9 mg/dL (0.55-1.3); SGPT/ALT 932 U/L (13-61)
[2022-09-27 21:04] LABS: BILIRUBIN,TOTAL 3.9 mg/dL (0.2-1); TOT PROT 3.1 g/dl (6.4-8.2)
[2022-09-27 21:06] LABS: ALK PHOS 168 U/L (45-117)
[2022-09-27 21:27] LABS: CALCIUM 5.9 mg/dL (8.5-10.1); SGOT/AST 8072 U/L (15-37)
[2022-09-27] MEDS: CHLORHEXIDINE GLUCONATE 4% CLEANSER FOR DECOLONIZATION TP SCH (21:46)
[2022-09-27 21:54] LABS: ANISOCYTOSIS 3+; CORRECTED WBC 9.61 K/mm3; MACROCYTOSIS 0; TARGET CELLS 2+; TOXIC GRANULATION 2+
[2022-09-27 22:34] LABS: ARTERIAL BLD GAS O2 SATURATION 98.2 % (95-98); ARTERIAL BLOOD GAS BASE EXCESS -20.5 mmol/L (-2-2); ARTERIAL BLOOD GAS PO2 163.4 mmHg (80-100)
[2022-09-27 22:37] LABS: ARTERIAL BLOOD GAS pH 7.025 (7.350-7.450)
[2022-09-27] MEDS: EPINEPHrine 1:1,000 1,000 MCG in DEXTROSE 5%-WATER - 249 ML IVPB SCH (22:49)
[2022-09-27] MEDS ORDERED: SODIUM BICARBONATE 8.4% 10 MEQ/10 ML VIAL SCH ×2 (23:00→23:15)
[2022-09-27] MEDS: FUROSEMIDE INJECTION 100 MG in DEXTROSE 5%-WATER - 40 ML IVPB SCH (23:06)
[2022-09-28] MEDS ORDERED: SODIUM BICARBONATE 8.4% 50 MEQ/50 ML DISP.SYRIN IVPUSH ONE ×6 (00:59→05:07)
[2022-09-28] MEDS: PIPERACILLIN/TAZOB 2.25 GM 2.25 GM in DEXTROSE 5%-WATER - 50 ML IVPB SCH ×3 (01:03→18:07)
[2022-09-28] MEDS: MIDAZOLAM IN 0.9 % SOD.CHLORID 100 MG/100 ML PLAST..BAG IVPB SCH (01:03)
[2022-09-28] MEDS: ROCURONIUM BROMIDE 500 MG/300 ML BAG IVPB SCH (01:04)
[2022-09-28 03:06] LABS: ARTERIAL BLD GAS O2 SATURATION 95.6 % (95-98); ARTERIAL BLOOD GAS BASE EXCESS -19.4 mmol/L (-2-2); ARTERIAL BLOOD GAS PO2 103.4 mmHg (80-100)
[2022-09-28 03:08] LABS: HEMATOCRIT 22.4 % (32.4-45.2); HEMOGLOBIN 7.3 GM/dL (10.7-15.3); MCH 29.7 pg (25.7-33.7); MCHC 32.7 g/dl (32.0-36.0); MEAN CELL VOLUME 90.9 fl (80-96); MEAN PLT VOLUME 7.7 fl (7.5-11.1); PLATELET COUNT 50 10^3/uL (134-434); RBC 2.47 M/mm3 (3.60-5.2); RDW 15.6 % (11.6-15.6)
[2022-09-28 03:21] LABS: INR 2.39 (0.83-1.09); PROTHROMBIN TIME (PATIENT) 27.7 SEC (9.7-13.0)
[2022-09-28 03:24] LABS: ACTIVATED PTT 40.7 SECONDS (25.2-36.5)
[2022-09-28 03:27] LABS: CHLORIDE 96 mmol/L (98-107); SODIUM 156 mmol/L (136-145)
[2022-09-28 03:28] LABS: ALBUMIN 1.4 g/dl (3.4-5.0); ANION GAP 49 MMOL/L (8-16); BLOOD UREA NITROGEN 11.1 mg/dL (7-18); CO2 11 mmol/L (21-32); GLUCOSE,RANDOM 229 mg/dL (74-106)
[2022-09-28 03:32] LABS: CREATININE 2.8 mg/dL (0.55-1.3); SGPT/ALT 802 U/L (13-61)
[2022-09-28 03:33] LABS: TOT PROT 3.2 g/dl (6.4-8.2)
[2022-09-28 03:52] LABS: ARTERIAL BLOOD GAS pH 7.097 (7.350-7.450)
[2022-09-28 04:00] LABS: ALK PHOS 138 U/L (45-117); CALCIUM 6.2 mg/dL (8.5-10.1); LACTIC ACID 50.1 mmol/L (0.4-2.0); SGOT/AST 6024 U/L (15-37)
[2022-09-28 04:11] LABS: WHITE BLOOD COUNT 10.7 K/mm3 (4.0-10.0)
[2022-09-28 04:12] LABS: ADD RBC MORPHOLOGY YES
[2022-09-28] MEDS ORDERED: CALCIUM GLUCONATE 10% - 1,000 MG/10 ML VIAL IVPB ONE ×2 (04:19→05:20)
[2022-09-28 04:43] LABS: ANISOCYTOSIS 2+; CORRECTED WBC 7.33 K/mm3; MACROCYTOSIS 1+; OVALOCYTE 2+; TARGET CELLS 1+; TEAR DROP CELLS 2+
[2022-09-28] MEDS: FENTANYL IVPB 500 MCG/100 ML BAG IVPB SCH ×2 (05:26→14:59)
[2022-09-28] MEDS: SODIUM BICARBONATE 8.4% - 150 MEQ in DEXTROSE 5%-WATER - 1,000 ML IV SCH ×4 (05:26→21:45)
[2022-09-28] MEDS ORDERED: FENTANYL NS IVPB 500 MCG/100 ML BAG IVPB ONE ×3 (05:28→21:38)
[2022-09-28 06:12] LABS: ARTERIAL BLD GAS O2 SATURATION 96.4 % (95-98); ARTERIAL BLOOD GAS BASE EXCESS -15.1 mmol/L (-2-2); ARTERIAL BLOOD GAS PO2 102.1 mmHg (80-100)
[2022-09-28 06:36] LABS: INR 2.58 (0.83-1.09)
[2022-09-28 06:39] LABS: ACTIVATED PTT 41.4 SECONDS (25.2-36.5)
[2022-09-28 06:53] LABS: ARTERIAL BLOOD GAS pH 7.196 (7.350-7.450)
[2022-09-28 06:54] LABS: LACTIC ACID 48.7 mmol/L (0.4-2.0)
[2022-09-28 07:09] LABS: HEMATOCRIT 19.8 % (32.4-45.2); MCH 29.9 pg (25.7-33.7); MCHC 33.3 g/dl (32.0-36.0); MEAN CELL VOLUME 89.8 fl (80-96); MEAN PLT VOLUME 8.3 fl (7.5-11.1); RBC 2.21 M/mm3 (3.60-5.2); RDW 15.5 % (11.6-15.6); WHITE BLOOD COUNT 7.8 K/mm3 (4.0-10.0)
[2022-09-28 07:13] LABS: HEMOGLOBIN 6.6 GM/dL (10.7-15.3); PLATELET COUNT 35 10^3/uL (134-434)
[2022-09-28 07:19] LABS: ALBUMIN 1.3 g/dl (3.4-5.0); ALK PHOS 141 U/L (45-117); ANION GAP 51 MMOL/L (8-16); BILIRUBIN,TOTAL 4.2 mg/dL (0.2-1); BLOOD UREA NITROGEN 11.8 mg/dL (7-18); CALCIUM 6.5 mg/dL (8.5-10.1); CHLORIDE 93 mmol/L (98-107); CO2 15 mmol/L (21-32); CREATININE 2.9 mg/dL (0.55-1.3); GLUCOSE,RANDOM 259 mg/dL (74-106); PHOSPHOROUS 7.5 mg/dL (2.5-4.9); SGOT/AST 5990 U/L (15-37); SGPT/ALT 738 U/L (13-61); SODIUM 159 mmol/L (136-145); TOT PROT 2.7 g/dl (6.4-8.2)
[2022-09-28] MEDS: EPINEPHrine 1:1,000 1,000 MCG in DEXTROSE 5%-WATER - 249 ML IVPB SCH ×2 (08:29→17:56)
[2022-09-28 08:45] LABS: ANISOCYTOSIS 3+; CORRECTED WBC 6.61 K/mm3; MACROCYTOSIS 0
[2022-09-28] MEDS: DEXMEDETOMIDINE PREMIX 400 MCG/100 ML BAG IVPB SCH ×2 (09:00→21:38)
[2022-09-28] MEDS: levETIRAcetam 500 MG/5 ML INJECTION VIAL IVPB SCH ×2 (09:20→22:56)
[2022-09-28] MEDS: MUPIROCIN 2% TOPICAL OINTMENT FOR DECOLONIZATION NS SCH ×2 (09:20→22:15)
[2022-09-28] MEDS: NOREPINEPHRINE 0.9 % NACL 8 MG/250 ML BAG IVPB SCH (09:56)
[2022-09-28] MEDS ORDERED: NOREPINEPHRINE BITARTRATE 16,000 MCG in SODIUM CHLORIDE 484 ML IV SCH (10:15)
[2022-09-28] MEDS: PHENYLEPHRINE NS PREMIX 50,000 MCG/500 ML BAG CVP SCH ×2 (10:22→16:06)
[2022-09-28 11:12] LABS: BILIRUBIN,DIRECT 2.6 mg/dL (0.0-0.2); MAGNESIUM 1.5 mg/dL (1.8-2.4)
[2022-09-28] MEDS ORDERED: CALCIUM GLUCONATE 10% - 1,000 MG/10 ML VIAL IVPB STA (11:21)
[2022-09-28] MEDS: VASOPRESSIN 40 UNITS/100 ML BAG IV SCH (14:00)
[2022-09-28 20:56] LABS: HEMATOCRIT 26.3 % (32.4-45.2); HEMOGLOBIN 8.7 GM/dL (10.7-15.3); MCH 30.2 pg (25.7-33.7); MEAN CELL VOLUME 91.6 fl (80-96); MEAN PLT VOLUME 8.2 fl (7.5-11.1); RBC 2.87 M/mm3 (3.60-5.2); RDW 16.9 % (11.6-15.6); WHITE BLOOD COUNT 4.8 K/mm3 (4.0-10.0)
[2022-09-28 21:08] LABS: PLATELET COUNT 5 10^3/uL (134-434)
[2022-09-28 21:26] LABS: CHLORIDE 96 mmol/L (98-107); SODIUM 156 mmol/L (136-145)
[2022-09-28 21:28] LABS: ANION GAP 47 MMOL/L (8-16); CO2 12 mmol/L (21-32); GLUCOSE,RANDOM 280 mg/dL (74-106); MAGNESIUM 1.3 mg/dL (1.8-2.4)
[2022-09-28 21:31] LABS: CREATININE 2.6 mg/dL (0.55-1.3); PHOSPHOROUS 5.5 mg/dL (2.5-4.9)
[2022-09-28 21:33] LABS: CALCIUM 5.6 mg/dL (8.5-10.1)
[2022-09-28] MEDS: FENTANYL NS IVPB 500 MCG/100 ML BAG IVPB SCH (21:40)
[2022-09-28] MEDS: CHLORHEXIDINE GLUCONATE 4% CLEANSER FOR DECOLONIZATION TP SCH (22:15)
[2022-09-28] MEDS: FUROSEMIDE INJECTION 100 MG in DEXTROSE 5%-WATER - 40 ML IVPB SCH (23:48)
[2022-09-29] MEDS: MIDAZOLAM IN 0.9 % SOD.CHLORID 100 MG/100 ML PLAST..BAG IVPB SCH ×2 (00:46→06:28)
[2022-09-29] MEDS: ROCURONIUM BROMIDE 500 MG/300 ML BAG IVPB SCH (00:47)
[2022-09-29] MEDS: PIPERACILLIN/TAZOB 2.25 GM 2.25 GM in DEXTROSE 5%-WATER - 50 ML IVPB SCH (01:41)
[2022-09-29 01:42] LABS: ARTERIAL BLD GAS O2 SATURATION 86.1 % (95-98); ARTERIAL BLOOD GAS BASE EXCESS -18.1 mmol/L (-2-2); ARTERIAL BLOOD GAS PO2 69.6 mmHg (80-100)
[2022-09-29 01:47] LABS: ARTERIAL BLOOD GAS pH 7.069 (7.350-7.450)
[2022-09-29 02:02] LABS: LACTIC ACID 45.2 mmol/L (0.4-2.0)
[2022-09-29] MEDS: PHENYLEPHRINE NS PREMIX 50,000 MCG/500 ML BAG CVP SCH (02:19)
[2022-09-29] MEDS: FENTANYL NS IVPB 500 MCG/100 ML BAG IVPB SCH ×2 (02:20→05:14)
[2022-09-29] MEDS: EPINEPHrine 1:1,000 1,000 MCG in DEXTROSE 5%-WATER - 249 ML IVPB SCH (02:21)
[2022-09-29] MEDS: SODIUM BICARBONATE 8.4% - 150 MEQ in DEXTROSE 5%-WATER - 1,000 ML IV SCH (04:15)
[2022-09-29 07:37] LABS: HEMATOCRIT 17.9 % (32.4-45.2); MCH 30.9 pg (25.7-33.7); MEAN CELL VOLUME 93.4 fl (80-96); MEAN PLT VOLUME 6.7 fl (7.5-11.1); RBC 1.92 M/mm3 (3.60-5.2); RDW 16.9 % (11.6-15.6); WHITE BLOOD COUNT 4.6 K/mm3 (4.0-10.0)
[2022-09-29 07:52] LABS: HEMOGLOBIN 5.9 GM/dL (10.7-15.3); PLATELET COUNT 14 10^3/uL (134-434)
[2022-09-29 08:11] LABS: CALCIUM 5.3 mg/dL (8.5-10.1)
[2022-09-29 08:14] VITALS: RESP 41
[2022-09-29 08:44] LABS: ANISOCYTOSIS 2+; CORRECTED WBC 2.84 K/mm3; MACROCYTOSIS 0; PLATELET ESTIMATE DECREASED
[2022-09-29 09:08] VITALS: BP 57/44; PULSE 82; TEMP 90
== END 2022-09-29 09:53 | disposition expired | DRG 661 ==
LOC: JER 23:12 → JERBED 09-25 00:11 → JICU 09-25 02:18
PROVIDERS: ADMIT Internal Medicine Pulmonary Disease; ATTEND Internal Medicine Pulmonary Disease
PROC: 5A1955Z Respiratory Ventilation, Greater than 96 Consecutive Hours (ICD-10-PCS; principal; 2022-09-25)
PROC: 0BH17EZ Insertion of Endotracheal Airway into Trachea, Via Natural or Artificial Opening (ICD-10-PCS; 2022-09-25)
PROC: 4A133B1 Monitoring of Arterial Pressure, Peripheral, Percutaneous Approach (ICD-10-PCS; 2022-09-25)
PROC: 4A133J1 Monitoring of Arterial Pulse, Peripheral, Percutaneous Approach (ICD-10-PCS; 2022-09-25)
PROC: 30233N1 Transfusion of Nonautologous Red Blood Cells into Peripheral Vein, Percutaneous Approach (ICD-10-PCS; 2022-09-25)
PROC: 30233R1 Transfusion of Nonautologous Platelets into Peripheral Vein, Percutaneous Approach (ICD-10-PCS; 2022-09-25)
PROC: 30233L1 Transfusion of Nonautologous Fresh Plasma into Peripheral Vein, Percutaneous Approach (ICD-10-PCS; 2022-09-25)
PROC: 30233K1 Transfusion of Nonautologous Frozen Plasma into Peripheral Vein, Percutaneous Approach (ICD-10-PCS; 2022-09-25)
PROC: 30233M1 Transfusion of Nonautologous Plasma Cryoprecipitate into Peripheral Vein, Percutaneous Approach (ICD-10-PCS; 2022-09-25)
DX: D65 Disseminated intravascular coagulation [defibrination syndrome] (principal); N30.91 Cystitis, unspecified with hematuria; J96.01 Acute respiratory failure with hypoxia; D62 Acute posthemorrhagic anemia; E87.20 Acidosis, unspecified; N17.0 Acute kidney failure with tubular necrosis; R57.8 Other shock; R56.9 Unspecified convulsions; K74.60 Unspecified cirrhosis of liver; M32.9 Systemic lupus erythematosus, unspecified; I95.9 Hypotension, unspecified; R31.0 Gross hematuria; E87.0 Hyperosmolality and hypernatremia; E83.51 Hypocalcemia; D72.829 Elevated white blood cell count, unspecified; I81 Portal vein thrombosis; H05.229 Edema of unspecified orbit; S00.03XA Contusion of scalp, initial encounter; G62.9 Polyneuropathy, unspecified
CPT/HCPCS: 36415; 36430; 36511; 36600; 70450-TC; 71045-TC-FY; 71260-TC; 74177-TC; 80048; 80053; 80076; 80307; 82248; 82310; 82330; 82803; 82962; 83605; 83735; 84100; 84484; 84703; 85025; 85027; 85379; 85384; 85610; 85730; 86850; 86900; 86901; 86922; 86965; 87086; 87186; 94002; 99291; 99292; C9803-CS; J3490; P9012; P9016; P9017; P9034; P9037; P9058; Q9967; U0003; U0005